=== PATIENT | female | born 1985 | race African-American/Black ===

== ENCOUNTER 2024-02-20 08:14 | Emergency (ER) | payer OTHER ==
[2024-02-20 08:49] VITALS: BP 134/94; PULSE 86; RESP 18; TEMP 97; BMI 32.1
[2024-02-20] MEDS ORDERED: ACETAMINOPHEN 325 MG TABLET (FP) ONE (08:50)
[2024-02-20] MEDS: ACETAMINOPHEN 325 MG TABLET (FP) PO ONE (08:51)
== END 2024-02-20 12:46 | disposition home or self-care (01) ==
LOC: JERFT 08:14 → JER 08:14 → EDBD 08:14 → JER 12:46
DX: O9A.212 Injury, poisoning and certain other consequences of external causes complicating pregnancy, second trimester (principal); M25.571 Pain in right ankle and joints of right foot; Z3A.20 20 weeks gestation of pregnancy; X50.1XXA Overexertion from prolonged static or awkward postures, initial encounter; Y93.01 Activity, walking, marching and hiking
CPT/HCPCS: 73630-TC-RT-FY; 99283-25